=== PATIENT | female | born 2000 | race Caucasian/White ===

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

== ENCOUNTER 2020-07-01 05:17 | Inpatient (IN) | payer BC, MEDICAID ==
--- NOTE | 2020-06-25 12:10 | PCM.LDHP ---
L&D History of Present Illness - General Date of Service: 07/01/20 Admit Problem/Dx: Admission Diagnosis/Problem Admission Diagnosis/Problem 06/25/20 11:58 Ifeoma is a 20-year-old 2 para 0-0-1-0 white female who is scheduled to be admitted on 07/01/2020 at 39 weeks gestational age for primary section due to large for gestational age baby/macrosomia. Source of Information: Patient History Limitations: Reports: No Limitations - History of Present Illness Introduction:: Ifeoma is a 20-year-old 2 para 0-0-1-0 white female who is scheduled to be admitted on 07/01/2020 at 39 weeks gestational age for primary section due to large for gestational age baby/macrosomia. Procedure, its risks, benefits, follow-up and alternatives of care including allowing for natural labor and attempt at vaginal delivery all discussed in detail. She is wishing to proceed and has signed a consent. 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 JO ANN 07/06/2020 is determined by a certain last menstrual period starting 09/30/2019 and supported by multiple ultrasounds during the course of the . Patient had 1 previous which ended in an elective termination in first trimester. She denies any STIs. She has not had a Pap smear due to her age of 20. LMP was certain at 09/30/2019. Patient normal menarche and cycles were reasonably regular. course: Patient was initially seen for this at 11 weeks gestational age. She was seen on a very frequent basis throughout the . Her weight gain was from 203.2 pounds to 252 pounds for a 49 pound increase. Her blood pressure remained normal throughout the . Her fundal height has been ahead of schedule for the last trimester. At this time she is approximately 4 cm ahead of schedule fundal height pierre. Last ultrasound performed on 06/24/2020 showed the baby at the 96 percentile with an estimated weight of 4052 g (5 pounds 15 ounces). Patient has been noted to have a borderline pelvis in the past. Presented to the patient was the potential risks of delivery of a 4052 g baby with a borderline pelvis in light of the fact that she is a gestational diabetic with less than optimal control. She appears to understand and would like to proceed with a primary section. The patient was group B strep positive on evaluation 06/08/2020. She declined flu vaccination. She was given diagnosis of gestational diabetes. She plans to breast-feed. She had a prequel noninvasive screen which was negative. Patient is rubella immune. HPV vaccination given May 2019. Hepatitis A immunizations 2017. Hepatitis B immunizations 2000. Pneumococcal immunizations 2000. Meningococcal immunization 2017. Laboratory testing in shows her blood to be all positive with first hemoglobin of 14.3 g/dL. Platelets were 296,000 at that time. She is rubella immune. RPR is nonreactive. Urine culture was negative. Hepatitis B surface antigen and HIV assays were both negative. Gonorrhea and Chlamydia were both negative. TSH on 04/06/2020 was normal at 1.264. Second trimester hemoglobin was 13.7 g/dL and platelets were 283,000. 1 hour GTT was 162. Patient was started on dietary therapy and has been on this in since that abnormal glucose testing. She has maintained reasonable but not optimal blood sugar therapy. She has been moderately noncompliant with her blood sugar evaluations and her diet. Group B strep screen was negative. Allergies: Seasonal allergies only. No known drug allergies. Medications: 1. Tylenol 3 occasionally for pain. 2. Doxylamine succinate and pyridoxine for nausea early in the . 3. vitamins daily 4. Calcium chews dose unknown taken daily. Past medical history: 1. Elective termination of 2. Obesity Past surgical history: 1. Right foot surgery. Family history: Mother is alive and well. Father's history is unknown. Brother is alive and well. Maternal grandmother is alive and well but has hypertension. Maternal grandfather is alive and well. Paternal grandparents histories are unknown. Maternal great uncle with stomach cancer history. No known family history of bleeding or clotting disorders, anesthesia related issues or related problems. Social history: Patient is single. Her significant other is Nat Burrell. She does not use any significant also alcohol, drugs or tobacco. She is not employed at the present time. She lives in [place], [place]. Review of systems: In general patient has no complaints other than late discomforts.. Skin: Negative Lungs: No infectious symptoms or shortness of breath Cardiovascular: No chest pain or exercise intolerance Breasts: No lumps, changes in size, pain, dimpling, discharge or axillary or supraclavicular concerns. GI: Negative : related changes. Musculoskeletal: Negative Neurological: Negative Physical exam: In general the patient is well-developed, well-nourished, pleasant female of stated age in no acute distress. Skin is warm dry without lesions. HEENT, neck and back within normal limits. Lungs are clear with good breath sounds in all lung landrum. Cardiovascular exam shows regular and rhythm without murmurs. Breast exam is deferred having been done at first annual visit and found to be normal is not repeated at this time. Patient does plan to breast-feed. Abdomen is gravid with fundal height of 42 cm. Baby is felt to be in a vertex presentation.. Genital per digital exam last done on 06/22/2020 showed cervix to be 2 cm, 80% effaced, soft, -3, mid position. Baby in vertex presentation.. Extremities and neurological exam are grossly within normal limits. - Related Data Allergies/Adverse Reactions: Allergies Allergy/AdvReac Type Severity Reaction Status Date / Time No Known Allergies Allergy Verified 06/08/20 20:58 Home Medications: Home Meds Vits #93/Iron Fum/FA [ Formula Tablet] 1 each PO DAILY 05/19/20 [History] Acetaminophen with Codeine [Acetaminophen-Cod #3] 1 - 2 tab PO ASDIRECTED PRN 06/08/20 [History] Doxylamine Succinate/Vit B6 [Doxylamine-Pyridoxine 10-10 mg] 1 each PO DAILY 06/08/20 [History] Past Medical History - Past Health History Medical/Surgical History: Denies Medical/Surgical History Endocrine/Metabolic History: Reports: Obesity/BMI 30+ - Past Surgical History HEENT Surgical History: Reports: Oral Surgery (dental work) Musculoskeletal Surgical History: Reports: Other (See Below) (Right bunionectomy 07/18/2019) Social & Family History - Family History Family Medical History: No Pertinent Family History - Caffeine Use Caffeine Use: Reports: None - Living Situation & Occupation Living situation: Reports: Single, with Significant Other (Boyfriend) Occupation: Employed (Retail) H&P Review of Systems - Review of Systems: Review Of Systems: See Below L&D Exam - Exam Exam: See Below Problem List Initiated/Reviewed/Updated: Yes Assessment/Plan Comment:: 1Elena is a 20-year-old 2 para 0-0-1-0 white female who is scheduled to be admitted on 07/01/2020 at 39 weeks gestational age for primary section due to large for gestational age baby/macrosomia. She is gestational diabetic and has a borderline pelvis. The procedure, risk, benefits, alternatives of care and follow-up were discussed in detail with patient. She appears understand and wishes to proceed. 2. Risk factors for surgery include history of gestational diabetes and obesity. 3. Group B strep screen is negative 4. She is gestational diabetic with less than optimal control with diet. 5. Patient is rubella immune. Declined flu vaccination. 6. Patient plans to breast-feed. 7. Blood is all positive. Plan: 1. Primary low uterine segment transverse section through Pfannenstiel skin incision under spinal block. The procedure, risk, benefits, alternatives of care and follow-up were discussed in detail. She appears understand and wishes to proceed 2. DVT prophylaxis with SCDs 3. Infection prophylaxis with 2-3 g of Ancef preoperatively 4. Preoperative labs to consist of CBC, type and screen, Covid19 testing
[2020-07-01] MEDS ORDERED: Sodium Chloride 0.9% 10 ML Syringe FLUSH PRN (05:30)
[2020-07-01] MEDS: Lactated Ringers 1,000 ML IV SCH ×2 (05:43→06:37)
[2020-07-01] MEDS ORDERED: Diphtheria,Pertussis(Acell),Tetanus Vaccine 0.5 ML Syringe IM ONE (05:57)
[2020-07-01] MEDS ORDERED: Morphine PF 10 MG/10 ML SDV ONE (06:56)
[2020-07-01] MEDS ORDERED: ceFAZolin 1 GM Vial ONE (06:56)
[2020-07-01] MEDS ORDERED: Oxytocin 10 Units/1 ML SDV ONE (06:56)
[2020-07-01] MEDS ORDERED: fentaNYL 100 MCG/2 ML SDV ONE (06:56)
[2020-07-01] MEDS ORDERED: Metoclopramide 10 MG/2 ML SDV IVPUSH ONE (07:00)
[2020-07-01] MEDS ORDERED: Citric Acid/Sodium Citrate Solution 30 ML Cup PO ONE (07:00)
[2020-07-01] MEDS ORDERED: Bupivacaine 0.5% 30 ML SDV ONE (07:15)
--- NOTE | 2020-07-01 07:22 | PCM.PREANE ---
Preanesthetic Assessment - Procedure Proposed Procedure: Primary Section - Anesthesia/Transfusion/Family Hx Anesthesia History: Prior Anesthesia Without Reaction Transfusion History: No Prior Transfusion(s) - Review of Systems General: No Symptoms Pulmonary: No Symptoms Cardiovascular: No Symptoms Gastrointestinal: No Symptoms Neurological: No Symptoms Other: Reports: None - Physical Assessment NPO Status Date: 06/30/20 NPO Status Time: 22:30 Vital Signs: Last Vital Signs Temp 97.3 F 07/01/20 05:31 Pulse 85 07/01/20 05:31 Resp 16 07/01/20 05:31 BP 133/96 H 07/01/20 05:31 Pulse Ox 98 07/01/20 05:31 Height: 1.63 m Weight: 114.85 kg ASA Class: 3 (high BMI) Mental Status: Alert & Oriented x3 Airway Class: Mallampati = 3 Dentition: Reports: Normal Dentition Thyro-Mental Finger Breadths: 3 Mouth Opening Finger Breadths: 3 ROM/Head Extension: Full Lungs: Clear to Auscultation, Normal Respiratory Effort Cardiovascular: Regular Rate, Regular Rhythm - Allergies Allergies/Adverse Reactions: Allergies Allergy/AdvReac Type Severity Reaction Status Date / Time No Known Allergies Allergy Verified 06/30/20 14:06 - Acknowledgements Anesthesia Type Planned: Spinal Pt an Appropriate Candidate for the Planned Anesthesia: Yes Alternatives and Risks of Anesthesia Discussed w Pt/Guardian: Yes Pt/Guardian Understands and Agrees with Anesthesia Plan: Yes PreAnesthesia Questionnaire - Past Health History Medical/Surgical History: Denies Medical/Surgical History W[employer] T[employer]ER History: Reports: , Therapeutic Other OB/BYN History: TAB 05/08/18. Currently ED07/06/20 Psychiatric History: Reports: Anxiety, Depression Endocrine/Metabolic History: Reports: Diabetes, Gestational, Obesity/BMI 30+ - Past Surgical History HEENT Surgical History: Reports: Oral Surgery Musculoskeletal Surgical History: Reports: Other (See Below) Other Musculoskeletal Surgeries/Procedures:: bunionectomy - SUBSTANCE USE Tobacco Use Status *Q: Never Tobacco User Tobacco Use Within Last Twelve Months: No Second Hand Smoke Exposure: No Recreational Drug Use History: No - HOME MEDS Home Medications: Home Meds Vits #93/Iron Fum/FA [ Formula Tablet] 1 each PO DAILY 05/19/20 [History] Doxylamine Succinate/Vit B6 [Doxylamine-Pyridoxine 10-10 mg] 1 each PO DAILY 06/08/20 [History] - CURRENT (IN HOUSE) MEDS Current Meds: Current Medications Cefazolin Sodium/Dextrose 2 gm (/ Premix) 50 mls @ 100 mls/hr IV ONETIME ONE Stop: 07/01/20 07:59 Oxytocin/Lactated Ringer's (Pitocin In Lr 20 Units/1,000 Ml) 20 unit in 1,000 mls @ 500 mls/hr IV TITRATE LISA; Protocol Lactated Ringer's (Ringers, Lactated) 1,000 mls @ 125 mls/hr IV ASDIRECTED LISA Last Admin: 07/01/20 06:37 Dose: 125 mls/hr Documented by: Cefazolin Sodium/Dextrose 1 gm (/ Premix) 50 mls @ 100 mls/hr IV ONETIME ONE Stop: 07/01/20 07:59 Sodium Chloride (Saline Flush) 10 ml FLUSH ASDIRECTED PRN PRN Reason: Keep Vein Open Discontinued Medications Cefazolin Sodium (Ancef) Confirm Administered Dose 2 gm .ROUTE .STK-MED ONE Stop: 07/01/20 06:57 Citric Acid/Sodium Citrate (Bicitra Solution) 30 ml PO ONETIME ONE Stop: 07/01/20 07:01 Diphtheria/Tetanus/Acell Pertussis (Adacel) 0.5 ml IM .ONCE ONE Stop: 07/01/20 05:58 Fentanyl (Sublimaze) Confirm Administered Dose 100 mcg .ROUTE .STK-MED ONE Stop: 07/01/20 06:57 Metoclopramide HCl (Reglan) 10 mg IVPUSH ONETIME ONE Stop: 07/01/20 07:01 Morphine Sulfate (Duramorph Pf) Confirm Administered Dose 10 mg .ROUTE .STK-MED ONE Stop: 07/01/20 06:57 Oxytocin (Pitocin) Confirm Administered Dose 20 unit .ROUTE .STK-MED ONE Stop: 07/01/20 06:57
[2020-07-01] MEDS ORDERED: ceFAZolin 2 GM in Premix Bag 1 BAG IV ONE (07:30)
[2020-07-01] MEDS ORDERED: ceFAZolin 1 GM in Premix Bag 1 BAG IV ONE (07:30)
[2020-07-01] MEDS ORDERED: Lactated Ringers 1,000 ML ONE (07:58)
[2020-07-01] MEDS ORDERED: Oxytocin/Lactated Ringers 20 UNIT/1,000 ML BAG IV SCH (08:00)
[2020-07-01] MEDS ORDERED: ePHEDrine 50 MG/ML SDV ONE (08:01)
[2020-07-01] MEDS ORDERED: Ondansetron 4 MG/2 ML SDV IVPUSH PRN (08:25)
[2020-07-01] MEDS ORDERED: fentaNYL 100 MCG/2 ML SDV IVPUSH PRN (08:25)
[2020-07-01] MEDS ORDERED: diphenhydrAMINE 50 MG/ML SDV IVPUSH PRN ×2 (08:25→10:27)
--- NOTE | 2020-07-01 08:55 | PCM.POSTAN ---
POST ANESTHESIA ASSESSMENT - MENTAL STATUS Mental Status: Alert, Oriented - VITAL SIGNS Vital Signs: Last Vital Signs Temp 97.3 F 07/01/20 08:50 Pulse 71 07/01/20 08:50 Resp 18 07/01/20 08:50 BP 131/60 07/01/20 08:50 Pulse Ox 98 07/01/20 08:50 - RESPIRATORY Respiratory Status: Respiratory Rate WNL, Airway Patent, O2 Saturation Stable - CARDIOVASCULAR CV Status: Pulse Rate WNL, Blood Pressure Stable - GASTROINTESTINAL GI Status: No Symptoms - PAIN Pain Score: 0 (post SAB) - POST OP HYDRATION Hydration Status: Adequate & Stable
--- NOTE | 2020-07-01 09:09 | PCM.OPNOTE ---
- General Post-Op/Procedure Note Date of Surgery/Procedure: 07/01/20 Operative Procedure(s): Primary low uterine segment transverse section through Pfannenstiel skin incision Findings: Ifeoma is a 20-year-old 2 para 0-0-1-0 white female who is scheduled to be admitted on 07/01/2020 at 39 weeks gestational age for primary section due to large for gestational age baby/macrosomia. Procedure, its risks, benefits, follow-up and alternatives of care including allowing for natural labor and attempt at vaginal delivery all discussed in detail. Underwent primary section for diagnosis of macrosomia and borderline pelvis. Male delivered at 0807 hrs. on 07/01/2020. Apgars 8 and 9. Weight was 8 pounds 15 ounces. Estimated blood loss was 900 cc. Urine output is 150 cc. IV fluids were 2000 cc. Surgery duration was approximately 30 minutes. Pre Op Diagnosis: 1. 39-week intrauterine . 2. macrosomia (large for gestational age) Post-Op Diagnosis: Same Anesthesia Technique: Spinal Other Anesthesia Type: Marcaine 0.5% - 20 cc totallocal Primary Surgeon: Cale Jacskon Secondary Surgeon: Kt Whelan Anesthesia Provider: Ari Lorenzo Reason Speech Teacher Was Necessary: Retraction, assistance, patient safety, quality of care. Fluid Replacement, Intraop: 2,000 Output, Urine Amount: 150 EBL in mLs: 900 Drain/Tube Comments:: Indwelling bladder catheter Complications: None Condition: Good Free Text/Narrative:: Surgery duration: 34 minutes Surgery duration: Procedure: The patient is appropriately consented. Patient was transferred to the room and placed in a sitting position. Spinal anesthesia was administered. After confirmation of adequate anesthesia patient was placed in a supine position with a wedge under her right side to facilitate left lateral positioning. The patient was prepped and draped in usual fashion after Yu catheter was already placed . The anesthetic was checked and found to be adequate. 20 mL of Marcaine 0.5% was injected locally in the Pfannenstiel incision site. The Pfannenstiel skin incision was then made and carried down through skin, subcutaneous and fascial layers. The fascia was then undermined superiorly and inferiorly to allow for adequate operating room. The recti muscles midline and preperitoneal fat was bluntly dissected. Peritoneal cavity was entered longitudinally. The vesicouterine peritoneum was then incised transversely and bladder flap was developed. Myometrium was incised transversely to the level of the amniotic sac. This incision was extended bilaterally in a blunt fashion. The amniotic sac was then ruptured resulting in clear amniotic fluid. A hand is placed in the low uterine segment and the baby's head was brought forth through the incision. The baby was completely delivered using fundal pressure in a routine fashion. The nose and mouth were bulb suctio familia. Baby's cord was clamped x2 cut and baby was handed off to attending spray machine operator Dr Donnelly. Placenta was expressed after cord blood was obtained. Uterus was then exteriorized to allow for easier closure. The cervix was assessed and found to be dilated adequately to allow egress of blood. The uterus was closed in 2 layers. The first layer a running locked suture of 0 Monocryl, the second layer a running locked vertical mattress suture of 0 Monocryl. 2 [id number] suture was placed at mid incision to control 2 bleeders. Hemostasis confirmed at this time. Sponge instrument needle counts are correct. The uterus was returned to the abdominal cavity and lateral gutters were cleared of blood. Once again sponge needle counts are correct. The anterior abdominal wall was closed with a #1 PDS suture from angle to angle. The subcutaneous area was found to be free of any bleeders. interrupted sutures of 3-0 Monocryl were used to reapproximate the subcutaneous layer.Skin was closed with a running subcuticular stitch of 3-0 Monocryl in a vertical mattress suture fashion using a Sergio needle. Prineo mesh/glue was then applied to further approximate the incision. It should be noted that patient received 2 g of Ancef preoperatively for infection prophylaxis and had Pitocin infused after delivery of the placenta to facilitate uterine contraction. She also had sequential compression stockings in place for DVT prophylaxis. Patient was discharged from the operating room in satisfactory condition.
[2020-07-01] MEDS ORDERED: Ondansetron 4 MG/2 ML SDV IV PRN (10:27)
[2020-07-01] MEDS ORDERED: ePHEDrine 50 MG/ML SDV IVPUSH PRN (10:27)
[2020-07-01] MEDS ORDERED: Naloxone 0.4 MG/ML SDV IVPUSH PRN (10:27)
[2020-07-01] MEDS ORDERED: Dextrose 5%-Lactated Ringers 1,000 ML IV SCH (10:27)
[2020-07-01] MEDS: Docusate Sodium 100 MG Cap PO SCH ×2 (11:15→22:53)
[2020-07-01] MEDS: Ibuprofen 800 MG Tab PO SCH ×2 (11:15→18:17)
[2020-07-01] MEDS: Simethicone 80 MG Tab.Chew PO SCH ×4 (11:16→22:53)
[2020-07-01] MEDS: Prenatal Multivitamin with Calcium/Folic Acid/Iron Tab PO SCH (11:18)
[2020-07-01] MEDS: Acetaminophen/oxyCODONE 325-5 MG Tab PO PRN (16:09)
[2020-07-02] MEDS: Ibuprofen 800 MG Tab PO SCH ×3 (02:15→19:20)
[2020-07-02] MEDS: Acetaminophen/oxyCODONE 325-5 MG Tab PO PRN ×4 (06:27→21:00)
--- NOTE | 2020-07-02 06:40 | PCM.PNPP ---
- General Info Date of Service: 07/02/20 Functional Status: Reports: Pain Controlled - Review of Systems General: Reports: No Symptoms HEENT: Reports: No Symptoms Pulmonary: Reports: No Symptoms Cardiovascular: Reports: No Symptoms Gastrointestinal: Reports: No Symptoms Genitourinary: Reports: No Symptoms Musculoskeletal: Reports: No Symptoms Skin: Reports: No Symptoms Neurological: Reports: No Symptoms Psychiatric: Reports: No Symptoms - General Info Date of Service: 07/02/20 - Patient Data Vital Signs - Most Recent: Last Vital Signs Temp 36.6 C 07/02/20 04:12 Pulse 77 07/02/20 04:12 Resp 16 07/02/20 06:00 BP 118/81 07/02/20 04:12 Pulse Ox 99 07/02/20 06:00 Weight - Most Recent: 114.85 kg I&O - Last 24 Hours: Intake & Output 07/01/20 07/01/20 07/02/20 14:59 22:59 06:59 Intake Total 2305 500 Output Total 1000 1150 2100 Balance 1305 -650 -2100 Lab Results - Last 24 Hours: Laboratory Results - last 24 hr 07/01/20 07/01/20 07/01/20 Range/Units 07:30 07:30 07:30 WBC 11.46 H (3.98-10.04) K/mm3 RBC 4.56 (3.98-5.22) M/mm3 Hgb 13.4 (11.2-15.7) gm/dl Hct 40.3 (34.1-44.9) % MCV 88.4 (79.4-94.8) fl MCH 29.4 (25.6-32.2) pg MCHC 33.3 (32.2-35.5) g/dl RDW Std Deviation 43.6 (36.4-46.3) fL Plt Count 184 (182-369) K/mm3 MPV 11.6 (9.4-12.3) fl Neut % (Auto) 73.6 H (34.0-71.1) % Lymph % (Auto) 17.0 L (19.3-51.7) % Casey % (Auto) 8.7 (4.7-12.5) % Eos % (Auto) 0.3 L (0.7-5.8) Baso % (Auto) 0.1 (0.1-1.2) % Neut # (Auto) 8.42 H (1.56-6.13) K/mm3 Lymph # (Auto) 1.95 (1.18-3.74) K/mm3 Casey # (Auto) 1.00 H (0.24-0.36) K/mm3 Eos # (Auto) 0.04 (0.04-0.36) K/mm3 Baso # (Auto) 0.01 (0.01-0.08) K/mm3 RPR Non-reactive (NONREACTIVE) Blood Type O POSITIVE Gel Antibody Screen Negative 07/02/20 Range/Units 04:53 WBC 10.63 H (3.98-10.04) K/mm3 RBC 3.52 L (3.98-5.22) M/mm3 Hgb 10.4 L D (11.2-15.7) gm/dl Hct 31.9 L (34.1-44.9) % MCV 90.6 (79.4-94.8) fl MCH 29.5 (25.6-32.2) pg MCHC 32.6 (32.2-35.5) g/dl RDW Std Deviation 43.9 (36.4-46.3) fL Plt Count 157 L (182-369) K/mm3 MPV 11.7 (9.4-12.3) fl Neut % (Auto) 74.3 H (34.0-71.1) % Lymph % (Auto) 14.0 L (19.3-51.7) % Casey % (Auto) 10.7 (4.7-12.5) % Eos % (Auto) 0.6 L (0.7-5.8) Baso % (Auto) 0.1 (0.1-1.2) % Neut # (Auto) 7.90 H (1.56-6.13) K/mm3 Lymph # (Auto) 1.49 (1.18-3.74) K/mm3 Casey # (Auto) 1.14 H (0.24-0.36) K/mm3 Eos # (Auto) 0.06 (0.04-0.36) K/mm3 Baso # (Auto) 0.01 (0.01-0.08) K/mm3 RPR (NONREACTIVE) Blood Type Gel Antibody Screen Med Orders - Current: Current Medications Diphenhydramine HCl (Benadryl) 25 mg IVPUSH Q6H PRN PRN Reason: Itching or Nausea Docusate Sodium (Colace) 100 mg PO Q12H [facility] Last Admin: 07/01/20 22:53 Dose: 100 mg Documented by: Ephedrine Sulfate (Ephedrine Sulfate) 5 mg IVPUSH SEECOMMENT PRN PRN Reason: Other Ibuprofen (Motrin) 800 mg PO Q8H [facility] Last Admin: 07/02/20 02:15 Dose: 800 mg Documented by: Naloxone HCl (Narcan) 0.1 mg IVPUSH SEECOMMENT PRN PRN Reason: Respiratory Depression Ondansetron HCl (Zofran) 4 mg IV Q4H PRN PRN Reason: Nausea/Vomiting Last Admin: 07/01/20 13:49 Dose: 4 mg Documented by: Oxycodone/Acetaminophen (Percocet 325-5 Mg) 1 tab PO Q4H PRN PRN Reason: Pain (moderate 4-6) Last Admin: 07/02/20 06:27 Dose: 1 tab Documented by: Oxycodone/Acetaminophen (Percocet 325-5 Mg) 2 tab PO Q4H PRN PRN Reason: Pain (severe 7-10) Prenat Multivit/Lajas/Iron/Folic Ac ( Plus Iron) 1 each PO DAILY [facility] Last Admin: 07/01/20 11:18 Dose: Not Given Documented by: Simethicone (Simethicone) 160 mg PO QID [facility] Last Admin: 07/01/20 22:53 Dose: 160 mg Documented by: Discontinued Medications Bupivacaine HCl (Marcaine 0.5%) Confirm Administered Dose 30 ml .ROUTE .STK-MED ONE Stop: 07/01/20 07:16 Last Admin: 07/01/20 08:01 Dose: 20 ml Documented by: Cefazolin Sodium (Ancef) Confirm Administered Dose 2 gm .ROUTE .STK-MED ONE Stop: 07/01/20 06:57 Citric Acid/Sodium Citrate (Bicitra Solution) 30 ml PO ONETIME ONE Stop: 07/01/20 07:01 Last Admin: 07/01/20 07:25 Dose: 30 ml Documented by: Diphenhydramine HCl (Benadryl) 25 mg IVPUSH Q6H PRN PRN Reason: Pruritis Diphtheria/Tetanus/Acell Pertussis (Adacel) 0.5 ml IM .ONCE ONE Stop: 07/01/20 05:58 Ephedrine Sulfate (Ephedrine Sulfate) Confirm Administered Dose 50 mg .ROUTE .STK-MED ONE Stop: 07/01/20 08:02 Fentanyl (Sublimaze) Confirm Administered Dose 100 mcg .ROUTE .STK-MED ONE Stop: 07/01/20 06:57 Fentanyl (Sublimaze) 50 mcg IVPUSH Q5M PRN PRN Reason: Pain Cefazolin Sodium/Dextrose 2 gm (/ Premix) 50 mls @ 100 mls/hr IV ONETIME ONE Stop: 07/01/20 07:59 Oxytocin/Lactated Ringer's (Pitocin In Lr 20 Units/1,000 Ml) 20 unit in 1,000 mls @ 500 mls/hr IV TITRATE LISA; Protocol Lactated Ringer's (Ringers, Lactated) 1,000 mls @ 125 mls/hr IV ASDIRECTED LISA Last Admin: 07/01/20 06:37 Dose: 125 mls/hr Documented by: Cefazolin Sodium/Dextrose 1 gm (/ Premix) 50 mls @ 100 mls/hr IV ONETIME ONE Stop: 07/01/20 07:59 Lactated Ringer's (Ringers, Lactated) Confirm Administered Dose 1,000 mls @ as directed .ROUTE .STK-MED ONE Stop: 07/01/20 07:59 Dextrose/Lactated Ringer's (Dextrose 5%-Lactated Ringers) 1,000 mls @ 125 mls/hr IV ASDIRECTED LISA Stop: 07/01/20 18:26 Last Admin: 07/01/20 13:51 Dose: 125 mls/hr Documented by: Metoclopramide HCl (Reglan) 10 mg IVPUSH ONETIME ONE Stop: 07/01/20 07:01 Last Admin: 07/01/20 07:29 Dose: 10 mg Documented by: Morphine Sulfate (Duramorph Pf) Confirm Administered Dose 10 mg .ROUTE .STK-MED ONE Stop: 07/01/20 06:57 Ondansetron HCl (Zofran) 4 mg IVPUSH ONETIME PRN PRN Reason: Nausea/Vomiting Oxytocin (Pitocin) Confirm Administered Dose 20 unit .ROUTE .[facility] ONE Stop: 07/01/20 06:57 Sodium Chloride (Saline Flush) 10 ml FLUSH ASDIRECTED PRN PRN Reason: Keep Vein Open - Infant Interaction Infant Disposition, : at Bedside Support Person: Significant Other - Recovery Exam Fundal Tone: Firm Fundal Level: 1 Fingerbreadths Below Umbilicus Fundal Placement: Midline Lochia Amount: Scant Lochia Color: Rubra/Red Perineum Description: Intact, Minimal Bruising/Swelling Episiotomy/Laceration: None Bladder Status: Indwelling Catheter in Place Urinary Elimination: Indwelling Catheter - Exam General: Alert, Oriented HEENT: Pupils Equal Neck: Supple Lungs: Clear to Auscultation, Normal Respiratory Effort Cardiovascular: Regular Rate, Regular Rhythm GI/Abdominal Exam: Normal Bowel Sounds, Soft, Non-Tender, No Organomegaly, No Distention, No Abnormal Bruit, No Mass, Pelvis Stable Extremities: Normal Inspection, Normal Range of Motion, Non-Tender, No Pedal Edema, Normal Capillary Refill Skin: Warm, Dry, Intact Wound/Incisions: Healing Well Neurological: No New Focal Deficit Psy/Mental Status: Alert, Normal Affect, Normal Mood - Problem List & Annotations (1) delivery delivered SNOMED Code(s): 691267905 Code(s): O82 - ENCOUNTER FOR DELIVERY WITHOUT INDICATION Status: Acute Current Visit: Yes (2) Gestational diabetes mellitus SNOMED Code(s): 12895849 Code(s): O24.419 - GESTATIONAL DIABETES MELLITUS IN , UNSP CONTROL Status: Acute Current Visit: Yes - Problem List Review Problem List Initiated/Reviewed/Updated: Yes - Assessment Assessment:: POD1 from section for suspected macrosomia. Doing well. Pain controlled. No complaints. Probable discharge tomorrow.
[2020-07-02] MEDS: Simethicone 80 MG Tab.Chew PO SCH ×4 (08:38→21:02)
[2020-07-02] MEDS: Docusate Sodium 100 MG Cap PO SCH ×3 (08:39→21:03)
--- NOTE | 2020-07-02 08:45 | PCM48HPAN ---
Post Anesthesia Note - EVALUATION WITHIN 48HRS OF ANESTHETIC Vital Signs in Normal Range: Yes Patient Participated in Evaluation: Yes Respiratory Function Stable: Yes Airway Patent: Yes Cardiovascular Function Stable: Yes Hydration Status Stable: Yes Pain Control Satisfactory: Yes Nausea and Vomiting Control Satisfactory: Yes Mental Status Recovered: Yes Vital Signs: Last Vital Signs Temp 36.6 C 07/02/20 04:12 Pulse 77 07/02/20 04:12 Resp 17 07/02/20 06:43 BP 118/81 07/02/20 04:12 Pulse Ox 98 07/02/20 06:43 - COMMENTS/OBSERVATIONS Free Text/Narrative:: no anesthesia complications noted
[2020-07-02] MEDS: Prenatal Multivitamin with Calcium/Folic Acid/Iron Tab PO SCH (12:16)
[2020-07-03] MEDS: Acetaminophen/oxyCODONE 325-5 MG Tab PO PRN ×3 (00:39→08:55)
[2020-07-03] MEDS: Docusate Sodium 100 MG Cap PO SCH ×3 (02:35→11:33)
[2020-07-03] MEDS: Ibuprofen 800 MG Tab PO SCH ×2 (02:53→11:33)
[2020-07-03] MEDS: Simethicone 80 MG Tab.Chew PO SCH (08:55)
[2020-07-03] MEDS: Prenatal Multivitamin with Calcium/Folic Acid/Iron Tab PO SCH (08:55)
--- NOTE | 2020-07-03 10:47 | PCM.SN.2 ---
- Free Text/Narrative Note: Post Operative Progress Note POD #2 Subjective: Doing well overall. Ambulating without difficulty but is somewhat sore when she does get up to walk around. Lochia minimal. Voiding without difficulty. Passing flatus. Tolerating regular diet without nausea or vomiting. Pain controlled with oral medications. Breast-feeding and pumping breastmilk with minimal difficulty. Objective: Vitals: Vital Signs - 24 hr 07/02/20 07/02/20 07/03/20 16:07 20:40 02:56 Temperature 36.4 C 37.1 C 36.9 C Pulse, 91 95 89 Peripheral Respiratory 14 14 16 Rate Blood Pressure 114/65 125/71 132/76 O2 Sat by Pulse 97 95 97 Oximetry Physical Exam General: Alert and oriented, no acute distress Lungs: Clear to auscultation bilaterally Heart: Regular rate and rhythm Abdomen: Soft, minimal appropriate tenderness, non-distended, fundus midline, nontender and at the umbilicus Incision: Clean, dry and intact, no erythema, bleeding or drainage with Telfa pad covering the perennial dressing. No bleeding noted on the Telfa pad Extremities: 1+ edema in bilateral lower extremities to mid shins, no calf tenderness bilaterally ASSESSMENT: 20-year-old female -0-0-1 s/p primary section POD #2 for macrosomic , complicated by gestational diabetes PLAN: Doing well Breast-feeding and pumping breastmilk with minimal difficulty. Assist as needed Incision healing well. Continue to keep clean and dry. Lochia minimal. Continue to monitor for appropriate lochia. Continue routine post-operative care Anticipate discharge home today Kt Whelan MD 10:46 AM 07/03/2020
--- NOTE | 2020-07-03 10:55 | PCM.DCSUM1 ---
Discharge Summary - Hospital Course Free Text/Narrative:: - General Post-Op/Procedure Note Date of Surgery/Procedure: 07/01/20 Operative Procedure(s): Primary low uterine segment transverse section through Pfannenstiel skin incision Findings: Ifeoma is a 20-year-old 2 para 0-0-1-0 white female who is scheduled to be admitted on 07/01/2020 at 39 weeks gestational age for primary section due to large for gestational age baby/macrosomia. Procedure, its risks, benefits, follow-up and alternatives of care including allowing for natural labor and attempt at vaginal delivery all discussed in detail. Underwent primary section for diagnosis of macrosomia and borderline pelvis. Male infant delivered at 0807 hrs. on 07/01/2020. Apgars 8 and 9. Weight was 8 pounds 15 ounces. Estimated blood loss was 900 cc. Urine output is 150 cc. IV fluids were 2000 cc. Surgery duration was approximately 30 minutes. Pre Op Diagnosis: 1. 39-week intrauterine . 2. macrosomia (large for gestational age) Post-Op Diagnosis: Same Anesthesia Technique: Spinal Other Anesthesia Type: Marcaine 0.5% - 20 cc totallocal Primary Surgeon: Cale Jackson Secondary Surgeon: Kt Whelan Anesthesia Provider: Ari Lorenzo Reason Head Housekeeper Was Necessary: Retraction, assistance, patient safety, quality of care. Fluid Replacement, Intraop: 2,000 Output, Urine Amount: 150 EBL in mLs: 900 Drain/Tube Comments:: Indwelling bladder catheter Complications: None Condition: Good Free Text/Narrative:: Surgery duration: 34 minutes Surgery duration: Procedure: The patient is appropriately consented. Patient was transferred to the room and placed in a sitting position. Spinal anesthesia was administered. After confirmation of adequate anesthesia patient was placed in a supine position with a wedge under her right side to facilitate left lateral positioning. The patient was prepped and draped in usual fashion after Yu catheter was already placed . The anesthetic was checked and found to be adequate. 20 mL of Marcaine 0.5% was injected locally in the Pfannenstiel incision site. The Pfannenstiel skin incision was then made and carried down through skin, subcutaneous and fascial layers. The fascia was then undermined superiorly and inferiorly to allow for adequate operating room. The recti muscles midline and preperitoneal fat was bluntly dissected. Peritoneal cavity was entered longitudinally. The vesicouterine peritoneum was then incised transversely and bladder flap was developed. Myometrium was incised transversely to the level of the amniotic sac. This incision was extended bilaterally in a blunt fashion. The amniotic sac was then ruptured resulting in clear amniotic fluid. A hand is placed in the low uterine segment and the baby's head was brought forth through the incision. The baby was completely delivered using fundal pressure in a routine fashion. The nose and mouth were bulb suctioned. Baby's cord was clamped x2 cut and baby was handed off to attending distribution operation supervisor Dr Donnelly. Placenta was expressed after cord blood was obtained. Uterus was then exteriorized to allow for easier closure. The cervix was assessed and found to be dilated adequately to allow egress of blood. The uterus was closed in 2 layers. The first layer a running locked suture of 0 Monocryl, the second layer a running locked vertical mattress suture of 0 Monocryl. 2 [id number] suture was placed at mid incision to control 2 bleeders. Hemostasis confirmed at this time. Sponge instrument needle counts are correct. The uterus was returned to the abdominal cavity and lateral gutters were cleared of blood. Once again sponge needle counts are correct. The anterior abdominal wall was closed with a #1 PDS suture from angle to angle. The subcutaneous area was found to be free of any bleeders. interrupted sutures of 3-0 Monocryl were used to reapproximate the subcutaneous layer.Skin was closed with a running subcuticular stitch of 3-0 Monocryl in a vertical mattress suture fashion using a Sergio needle. Prineo mesh/glue was then applied to further approximate the incision. It should be noted that patient received 2 g of Ancef preoperatively for infection prophylaxis and had Pitocin infused after delivery of the placenta to facilitate uterine contraction. She also had sequential compression stockings in place for DVT prophylaxis. Patient was discharged from the operating room in satisfactory condition. Diagnosis: Stroke: No - Discharge Data Discharge Date: 07/03/20 Discharge Disposition: Home, Self-Care 01 Condition: Good - Referral to Home Health Primary Care Physician: Cale Jackson MD - Discharge Diagnosis/Problem(s) (1) 39 weeks gestation of SNOMED Code(s): 49604454 ICD Code: Z3A.39 - 39 WEEKS GESTATION OF Status: Acute Current Visit: Yes (2) macrosomia affecting management of mother, antepartum SNOMED Code(s): 85569306 ICD Code: O36.60X0 - MATERNAL CARE FOR EXCESS GROWTH, UNSP TRIMESTER, UNSP Status: Acute Current Visit: Yes (3) delivery delivered SNOMED Code(s): 949910153 ICD Code: O82 - ENCOUNTER FOR DELIVERY WITHOUT INDICATION Status: Acute Current Visit: Yes (4) Gestational diabetes mellitus SNOMED Code(s): 43302771 ICD Code: O24.419 - GESTATIONAL DIABETES MELLITUS IN , UNSP CONTROL Status: Acute Current Visit: Yes - Patient Summary/Data Operative Procedure(s) Performed: Primary low uterine segment transverse section through Pfannenstiel skin incision Complications: None Consults: None Hospital Course: Ifeoma Leo was admitted for primary section. She was taken back to the OR and given spinal injection for anesthesia. She was given Ancef 2 g IV for antibiotic prophylaxis. She was prepped and draped in the normal fashion. On 07/01/2020 she had a normal delivery of a live male at 08:07. Apgars of 8 and 9. Weight of 8 pounds 15 ounces. She was closed in a normal fashion. There were no complications with the procedure. Please see the operative report for full details. Her post operative course was uneventful. Her pain was well controlled and she had minimal lochia. She was ambulating, tolerating a regular diet and voiding normally. She was passing flatus and has not had a bowel movement. She was breast feeding and pumping breastmilk for feeding and this is going well. She was afebrile and her hematocrit was 31.9 on POD #1. She desired to be discharged home on the morning of POD #2. Her blood type is O+. - Patient Instructions Diet: Regular Diet as Tolerated Activity: Apply Ice, As Tolerated Activity, Other: Thing in the vagina for 6 weeks Driving: Do Not Drive (While taking narcotic medications are having significant pain) Showering/Bathing: May Shower Wound/Incision Care: Keep Operative Site/Wound Site Clean and Dry Notify Provider of: Fever, Increased Pain, Swelling and Redness, Drainage, Nausea and/or Vomiting Other/Special Instructions: Please contact your physician's office if you note any bleeding or pus coming from the abdominal incision. Please contact your physician's office if you have heavy vaginal bleeding enough to soak a pad in less than an hour for several hours. Monitor for any signs of an infection in the breasts with severe pain or redness of the breast. - Discharge Plan *PRESCRIPTION DRUG MONITORING PROGRAM REVIEWED*: Yes *COPY OF PRESCRIPTION DRUG MONITORING REPORT IN PATIENT STAR: No Prescriptions/Med Rec: Acetaminophen/oxyCODONE [Percocet 325-5 MG] 1 - 2 tab PO Q4H PRN #30 tablet PRN Reason: Pain (Moderate 4-6) Home Medications: Home Meds Vits #93/Iron Fum/FA [ Formula Tablet] 1 each PO DAILY 05/19/20 [History] Doxylamine Succinate/Vit B6 [Doxylamine-Pyridoxine 10-10 mg] 1 each PO DAILY 06/08/20 [History] Acetaminophen/oxyCODONE [Percocet 325-5 MG] 1 - 2 tab PO Q4H PRN #30 tablet 07/03/20 [Rx] Docusate Sodium [Colace] 100 mg PO BID #30 cap 07/03/20 [Rx] Ibuprofen [Motrin] 800 mg PO Q8H PRN tablet 07/03/20 [Rx] Simethicone 160 mg PO QID tab.chew 07/03/20 [Rx] Patient Handouts: Delivery, Care After Referrals: Cale Jackson MD [Primary Care Provider] - (Follow-up in 2 weeks for routine postoperative visit or earlier as needed.) - Discharge Summary/Plan Comment DC Time >30 min.: No - Patient Data Vitals - Most Recent: Last Vital Signs Temp 37.0 C 07/03/20 08:53 Pulse 93 07/03/20 08:53 Resp 16 07/03/20 08:53 BP 121/63 07/03/20 08:53 Pulse Ox 98 07/03/20 08:53 Weight - Most Recent: 114.85 kg I&O - Last 24 hours: Intake & Output 07/02/20 07/03/20 07/03/20 22:59 06:59 14:59 Intake Total 120 Balance 120 Med Orders - Current: Current Medications Diphenhydramine HCl (Benadryl) 25 mg IVPUSH Q6H PRN PRN Reason: Itching or Nausea Docusate Sodium (Colace) 100 mg PO Q12H [facility] Last Admin: 07/03/20 08:55 Dose: 100 mg Documented by: Ephedrine Sulfate (Ephedrine Sulfate) 5 mg IVPUSH SEECOMMENT PRN PRN Reason: Other Ibuprofen (Motrin) 800 mg PO Q8H [facility] Last Admin: 07/03/20 02:53 Dose: 800 mg Documented by: Naloxone HCl (Narcan) 0.1 mg IVPUSH SEECOMMENT PRN PRN Reason: Respiratory Depression Ondansetron HCl (Zofran) 4 mg IV Q4H PRN PRN Reason: Nausea/Vomiting Last Admin: 07/01/20 13:49 Dose: 4 mg Documented by: Oxycodone/Acetaminophen (Percocet 325-5 Mg) 1 tab PO Q4H PRN PRN Reason: Pain (moderate 4-6) Last Admin: 07/03/20 05:14 Dose: 1 tab Documented by: Oxycodone/Acetaminophen (Percocet 325-5 Mg) 2 tab PO Q4H PRN PRN Reason: Pain (severe 7-10) Last Admin: 07/03/20 08:55 Dose: 2 tab Documented by: Prenat Multivit/Pandora/Iron/Folic Ac ( Plus Iron) 1 each PO DAILY [facility] Last Admin: 07/03/20 08:55 Dose: 1 each Documented by: Simethicone (Simethicone) 160 mg PO QID [facility] Last Admin: 07/03/20 08:55 Dose: 160 mg Documented by: Discontinued Medications Bupivacaine HCl (Marcaine 0.5%) Confirm Administered Dose 30 ml .ROUTE .STK-MED ONE Stop: 07/01/20 07:16 Last Admin: 07/01/20 08:01 Dose: 20 ml Documented by: Cefazolin Sodium (Ancef) Confirm Administered Dose 2 gm .ROUTE .STK-MED ONE Stop: 07/01/20 06:57 Citric Acid/Sodium Citrate (Bicitra Solution) 30 ml PO ONETIME ONE Stop: 07/01/20 07:01 Last Admin: 07/01/20 07:25 Dose: 30 ml Documented by: Diphenhydramine HCl (Benadryl) 25 mg IVPUSH Q6H PRN PRN Reason: Pruritis Diphtheria/Tetanus/Acell Pertussis (Adacel) 0.5 ml IM .ONCE ONE Stop: 07/01/20 05:58 Ephedrine Sulfate (Ephedrine Sulfate) Confirm Administered Dose 50 mg .ROUTE .STK-MED ONE Stop: 07/01/20 08:02 Fentanyl (Sublimaze) Confirm Administered Dose 100 mcg .ROUTE .STK-MED ONE Stop: 07/01/20 06:57 Fentanyl (Sublimaze) 50 mcg IVPUSH Q5M PRN PRN Reason: Pain Cefazolin Sodium/Dextrose 2 gm (/ Premix) 50 mls @ 100 mls/hr IV ONETIME ONE Stop: 07/01/20 07:59 Oxytocin/Lactated Ringer's (Pitocin In Lr 20 Units/1,000 Ml) 20 unit in 1,000 mls @ 500 mls/hr IV TITRATE LISA; Protocol Lactated Ringer's (Ringers, Lactated) 1,000 mls @ 125 mls/hr IV ASDIRECTED [facility] Last Admin: 07/01/20 06:37 Dose: 125 mls/hr Documented by: Cefazolin Sodium/Dextrose 1 gm (/ Premix) 50 mls @ 100 mls/hr IV ONETIME ONE Stop: 07/01/20 07:59 Lactated Ringer's (Ringers, Lactated) Confirm Administered Dose 1,000 mls @ as directed .ROUTE .STK-MED ONE Stop: 07/01/20 07:59 Dextrose/Lactated Ringer's (Dextrose 5%-Lactated Ringers) 1,000 mls @ 125 mls/hr IV ASDIRECTED [facility] Stop: 07/01/20 18:26 Last Admin: 07/01/20 13:51 Dose: 125 mls/hr Documented by: Metoclopramide HCl (Reglan) 10 mg IVPUSH ONETIME ONE Stop: 07/01/20 07:01 Last Admin: 07/01/20 07:29 Dose: 10 mg Documented by: Morphine Sulfate (Duramorph Pf) Confirm Administered Dose 10 mg .ROUTE .STK-MED ONE Stop: 07/01/20 06:57 Ondansetron HCl (Zofran) 4 mg IVPUSH ONETIME PRN PRN Reason: Nausea/Vomiting Oxytocin (Pitocin) Confirm Administered Dose 20 unit .ROUTE .STK-MED ONE Stop: 07/01/20 06:57 Sodium Chloride (Saline Flush) 10 ml FLUSH ASDIRECTED PRN PRN Reason: Keep Vein Open
== END 2020-07-03 12:45 | disposition home or self-care (01) | DRG 540 ==
LOC: JD.OB 05:17
PROVIDERS: ADMIT Obstetrics & Gynecology; ATTEND Obstetrics & Gynecology
PROC: 10D00Z1 Extraction of Products of Conception, Low, Open Approach (ICD-10-PCS; principal; 2020-07-01)
DX: O36.63X0 Maternal care for excessive fetal growth, third trimester, not applicable or unspecified (principal); Z3A.39 39 weeks gestation of pregnancy; Z37.0 Single live birth; O99.214 Obesity complicating childbirth; E66.9 Obesity, unspecified; O24.429 Gestational diabetes mellitus in childbirth, unspecified control
CPT/HCPCS: 01961; 36415; 59025; 85025; 86592; 86850; 86900; 86901; 94762; A9270-GY; J0690; J2270; J2405; J2590; J2765; J3010; J3490; J7120; J7121

== ENCOUNTER 2022-03-30 09:33 | Emergency (ER) | payer MEDICAID ==
[2022-03-30] MEDS ORDERED: diphenhydrAMINE 25 MG Cap PO ONE (12:03)
[2022-03-30] MEDS ORDERED: Vitamin B6-pyridOXINE 50 MG Tab PO STA (12:03)
[2022-03-30] MEDS ORDERED: Cephalexin 500 MG Cap PO ONE (14:40)
== END 2022-03-30 14:52 | disposition other institution (70) ==
LOC: JD.ED 09:33
DX: O23.41 Unspecified infection of urinary tract in pregnancy, first trimester (principal); Z3A.01 Less than 8 weeks gestation of pregnancy; E66.9 Obesity, unspecified; Z68.39 Body mass index [BMI] 39.0-39.9, adult; Z91.011 Allergy to milk products; Z91.048 Other nonmedicinal substance allergy status; Z79.899 Other long term (current) drug therapy
CPT/HCPCS: 36415; 76705; 76817; 80053; 81001; 83690; 84702; 85025; 99284; A9270

== ENCOUNTER 2022-11-11 05:14 | Inpatient (IN) | payer MEDICAID ==
[~2022-11-11 05:14] MED LIST: ceFAZolin 1 GM in Sodium Chloride 0.9% 50 ML IV PRN; ceFAZolin 2 GM in Sodium Chloride 0.9% 50 ML IV PRN
[2022-11-11] MEDS: Lactated Ringers 1,000 ML IV SCH ×2 (05:40→06:21)
[2022-11-11 06:23] LABS: BASOPHILS ABSOLUTE AUTO 0.01 K/mm3 (0.01-0.08); BASOPHILS PERCENT AUTO 0.1 % (0.1-1.2); EOSINOPHILS ABSOLUTE AUTO 0.03 K/mm3 (0.04-0.36); EOSINOPHILS PERCENT AUTO 0.3 (0.7-5.8); HEMATOCRIT 37.9 % (34.1-44.9); IMMATURE GRAN ABSOLUTE AUTO 0.02 K/mm3 (0.00-0.10); IMMATURE GRAN PERCENT AUTO 0.2 % (<=1.0); LYMPHOCYTES ABSOLUTE AUTO 1.88 K/mm3 (1.18-3.74); LYMPHOCYTES PERCENT AUTO 20.7 % (19.3-51.7); MEAN CORPUSCULAR HGB CONC 33.5 g/dl (32.2-35.5); MEAN CORPUSCULAR VOLUME 89.6 fl (79.4-94.8); MEAN PLATELET VOLUME 11.8 fl (9.4-12.3); MONOCYTES ABSOLUTE AUTO 0.91 K/mm3 (0.24-0.36); NEUTROPHILS ABSOLUTE AUTO 6.22 K/mm3 (1.56-6.13); NEUTROPHILS PERCENT AUTO 68.7 % (34.0-71.1); PLATELET COUNT,PLT 215 K/mm3 (182-369); RED BLOOD CELL COUNT 4.23 M/mm3 (3.98-5.22); WHITE BLOOD CELL COUNT,WBC 9.07 K/mm3 (3.98-10.04)
[2022-11-11 06:25] LABS: HEMOGLOBIN 12.7 gm/dl (11.2-15.7)
[2022-11-11] MEDS ORDERED: fentaNYL 100 MCG/2 ML SDV ONE (06:58)
[2022-11-11] MEDS ORDERED: Morphine PF 1 MG/ML Amp ONE (06:58)
[2022-11-11] MEDS ORDERED: Citric Acid/Sodium Citrate Solution 30 ML Cup PO ONE (07:00)
[2022-11-11] MEDS ORDERED: Metoclopramide 10 MG/2 ML SDV IVPUSH ONE (07:00)
[2022-11-11] MEDS ORDERED: ceFAZolin 2 GM Vial ONE (07:30)
[2022-11-11] MEDS ORDERED: Dexmedetomidine 200 MCG/2 ML SDV ONE (07:54)
[2022-11-11] MEDS ORDERED: Lactated Ringers 1,000 ML ONE ×2 (07:59→08:22)
[2022-11-11] MEDS ORDERED: Oxytocin/Lactated Ringers 10 UNIT/1,000 ML BAG IV SCH (08:00)
[2022-11-11] MEDS ORDERED: Ondansetron 4 MG/2 ML SDV ONE (08:08)
[2022-11-11] MEDS ORDERED: Oxytocin 10 Units/1 ML SDV ONE ×2 (08:14→08:24)
[2022-11-11] MEDS ORDERED: Phenylephrine 1% 10 MG/ML SDV ONE (08:22)
[2022-11-11] MEDS ORDERED: Ketorolac 30 MG/ML SDV ONE (08:34)
[2022-11-11] MEDS ORDERED: diphenhydrAMINE 50 MG/ML SDV IVPUSH PRN ×2 (08:44→10:39)
[2022-11-11] MEDS ORDERED: fentaNYL 100 MCG/2 ML SDV IVPUSH PRN (08:44)
[2022-11-11] MEDS ORDERED: Ondansetron 4 MG/2 ML SDV IVPUSH PRN (08:44)
[2022-11-11] MEDS ORDERED: Dextrose 5%-Lactated Ringers 1,000 ML IV SCH (10:39)
[2022-11-11] MEDS ORDERED: Naloxone 0.4 MG/ML SDV IVPUSH PRN (10:39)
[2022-11-11] MEDS ORDERED: Ondansetron 4 MG/2 ML SDV IV PRN (10:39)
[2022-11-11] MEDS ORDERED: Docusate Sodium 100 MG Cap PO PRN (10:39)
[2022-11-11] MEDS: Ketorolac 30 MG/ML SDV IVPUSH SCH ×2 (14:17→21:34)
[2022-11-11] MEDS: Acetaminophen/oxyCODONE 325-5 MG Tab PO PRN (20:03)
[2022-11-12] MEDS: Ketorolac 30 MG/ML SDV IVPUSH SCH (03:46)
[2022-11-12] MEDS: Acetaminophen/oxyCODONE 325-5 MG Tab PO PRN ×4 (04:48→23:07)
[2022-11-12 06:05] LABS: HEMATOCRIT 35.3 % (34.1-44.9); HEMOGLOBIN 11.4 gm/dl (11.2-15.7); MEAN CORPUSCULAR HEMOGLOBIN 29.6 pg (25.6-32.2); MEAN CORPUSCULAR HGB CONC 32.3 g/dl (32.2-35.5); MEAN CORPUSCULAR VOLUME 91.7 fl (79.4-94.8); MEAN PLATELET VOLUME 11.5 fl (9.4-12.3); PLATELET COUNT,PLT 193 K/mm3 (182-369); RED BLOOD CELL COUNT 3.85 M/mm3 (3.98-5.22); WHITE BLOOD CELL COUNT,WBC 9.99 K/mm3 (3.98-10.04)
[2022-11-12] MEDS: Ibuprofen 600 MG Tab PO PRN ×2 (15:45→23:06)
[2022-11-12] MEDS: Citalopram 20 MG Tab PO SCH (15:58)
[2022-11-13] MEDS: Ibuprofen 600 MG Tab PO PRN (06:40)
[2022-11-13] MEDS: Acetaminophen/oxyCODONE 325-5 MG Tab PO PRN (09:50)
[2022-11-13] MEDS: Citalopram 20 MG Tab PO SCH (09:52)
== END 2022-11-13 13:13 | disposition home or self-care (01) | DRG 788 ==
LOC: JD.OB 05:14
PROVIDERS: ADMIT Obstetrics & Gynecology; ATTEND Obstetrics & Gynecology
PROC: 10D00Z1 Extraction of Products of Conception, Low, Open Approach (ICD-10-PCS; principal; 2022-11-11)
DX: O34.211 Maternal care for low transverse scar from previous cesarean delivery (principal); O99.344 Other mental disorders complicating childbirth; F41.9 Anxiety disorder, unspecified; F32.A Depression, unspecified; O99.214 Obesity complicating childbirth; O99.52 Diseases of the respiratory system complicating childbirth; J45.909 Unspecified asthma, uncomplicated; D64.9 Anemia, unspecified; O99.02 Anemia complicating childbirth; Z37.0 Single live birth; Z98.890 Other specified postprocedural states; Z3A.39 39 weeks gestation of pregnancy; Z79.899 Other long term (current) drug therapy; Z91.011 Allergy to milk products; Z88.8 Allergy status to other drugs, medicaments and biological substances; Z86.16 Personal history of COVID-19; Z91.040 Latex allergy status; Z87.891 Personal history of nicotine dependence
CPT/HCPCS: 36415; 59025; 85025; 85027; 86592; 86850; 86900; 86901; A9270-GY; J0690; J1200; J1885; J2274; J2370; J2405; J2590; J2765; J3010; J3490; J7120; J7121

== ENCOUNTER 2023-10-22 20:20 | Emergency (ER) | payer MEDICAID | END 2023-10-22 21:48 | disposition home or self-care (01) | LOC: JD.ED 20:20 | DX: S06.9X0A Unspecified intracranial injury without loss of consciousness, initial encounter (principal); J45.909 Unspecified asthma, uncomplicated; K21.9 Gastro-esophageal reflux disease without esophagitis; Z91.011 Allergy to milk products; Z91.018 Allergy to other foods; Z79.51 Long term (current) use of inhaled steroids; Z79.899 Other long term (current) drug therapy; Z86.16 Personal history of COVID-19; W55.22XA Struck by cow, initial encounter | CPT/HCPCS: 99283; 99284 ==

== ENCOUNTER 2024-03-18 17:55 | Emergency (ER) | payer BC, MEDICAID ==
[2024-03-18 19:17] LABS: BASOPHILS ABSOLUTE AUTO 0.1 K/mm3 (0.0-0.2); BASOPHILS PERCENT AUTO 0.5 % (0.0-1.0); EOSINOPHILS ABSOLUTE AUTO 0.1 K/mm3 (0.0-0.4); EOSINOPHILS PERCENT AUTO 0.9 % (0.0-6.0); HEMATOCRIT 44.5 % (37.0-47.0); HEMOGLOBIN 14.9 gm/dl (12.0-16.0); IMMATURE GRAN ABSOLUTE AUTO 0.03 K/mm3 (0.00-0.05); IMMATURE GRAN PERCENT AUTO 0.3 % (0.0-0.4); LYMPHOCYTES PERCENT AUTO 17.6 % (24.0-44.0); MEAN CORPUSCULAR HEMOGLOBIN 29.3 pg (28.0-32.0); MEAN CORPUSCULAR HGB CONC 33.5 g/dl (32.0-36.0); MEAN CORPUSCULAR VOLUME 87.6 fl (83.0-99.0); MEAN PLATELET VOLUME 10.5 fl (9.4-12.3); MONOCYTES ABSOLUTE AUTO 0.8 K/mm3 (0.0-0.8); MONOCYTES PERCENT AUTO 7.6 % (0.0-8.0); NEUTROPHILS ABSOLUTE AUTO 8.1 K/mm3 (1.8-7.7); NEUTROPHILS PERCENT AUTO 73.1 % (41.0-71.0); PLATELET COUNT,PLT 336 K/mm3 (150-400); RED BLOOD CELL COUNT 5.08 M/mm3 (4.10-5.30); WHITE BLOOD CELL COUNT,WBC 11.06 K/mm3 (3.9-11.3)
[2024-03-18 19:41] LABS: ANION GAP 12.8 (5-15); BLOOD UREA NITROGEN,BUN 8 mg/dL (7-18); CALCIUM 9.2 mg/dL (8.5-10.1); CARBON DIOXIDE,CO2 25 mEq/L (21-32); CHLORIDE,CL 105 mEq/L (98-107); CREATININE 0.5 mg/dL (0.55-1.02); EST CRCL DRUG DOSING (CG) 149.82 mL/min; ESTIMATED GFR 134 mL/min (>60); GLUCOSE RANDOM 100 mg/dL (70-99); POTASSIUM,K 3.8 mEq/L (3.5-5.1); SODIUM,NA 139 mEq/L (136-145)
[2024-03-18 19:52] LABS: TROPONIN I HIGH SENSITIVITY < 4 pg/mL (<=51)
== END 2024-03-18 20:22 ==
LOC: JD.ED 17:55
DX: R07.89 Other chest pain (principal); F41.9 Anxiety disorder, unspecified; J45.909 Unspecified asthma, uncomplicated; E66.9 Obesity, unspecified; Z68.39 Body mass index [BMI] 39.0-39.9, adult; Z86.16 Personal history of COVID-19; Z87.891 Personal history of nicotine dependence; Z79.899 Other long term (current) drug therapy; Z91.011 Allergy to milk products; Z91.048 Other nonmedicinal substance allergy status
CPT/HCPCS: 36415; 71046; 71046-26; 80048; 84484; 85025; 93005; 99285

== ENCOUNTER 2025-03-19 19:16 | Emergency (ER) | payer SELFPAY ==
[2025-03-19] MEDS ORDERED: Sodium Chloride 0.9% 10 ML Syringe FLUSH PRN (19:47)
[2025-03-19 20:19] LABS: BASOPHILS ABSOLUTE AUTO 0.1 K/mm3 (0.0-0.2); BASOPHILS PERCENT AUTO 0.4 % (0.0-1.0); EOSINOPHILS ABSOLUTE AUTO 0.1 K/mm3 (0.0-0.4); EOSINOPHILS PERCENT AUTO 0.9 % (0.0-6.0); IMMATURE GRAN ABSOLUTE AUTO 0.04 K/mm3 (0.00-0.05); IMMATURE GRAN PERCENT AUTO 0.3 % (0.0-0.4); LYMPHOCYTES ABSOLUTE AUTO 3.0 K/mm3 (1.0-4.8); LYMPHOCYTES PERCENT AUTO 24.8 % (24.0-44.0); MEAN PLATELET VOLUME 10.4 fl (9.4-12.3); MONOCYTES ABSOLUTE AUTO 1.1 K/mm3 (0.0-0.8); MONOCYTES PERCENT AUTO 9.0 % (0.0-8.0); NEUTROPHILS ABSOLUTE AUTO 7.9 K/mm3 (1.8-7.7); NEUTROPHILS PERCENT AUTO 64.6 % (41.0-71.0); NRBC ABSOLUTE 0.00 (0.00-0.02); NRBC PERCENT 0.0 % (0.0-0.2); PLATELET COUNT,PLT 342 K/mm3 (150-400); RED BLOOD CELL COUNT 5.24 M/mm3 (4.10-5.30); WHITE BLOOD CELL COUNT,WBC 12.17 K/mm3 (3.9-11.3)
[2025-03-19 20:21] LABS: APPEARANCE,URINE CLEAR (Clear); GLUCOSE,URINE NEGATIVE (Negative); OCCULT BLOOD,URINE NEGATIVE (Negative)
[2025-03-19 20:46] LABS: A/G RATIO 1.1 (1-2); ALANINE AMINOTRANSFERASE,ALT 25.0 U/L (14-59); ASPARTATE AMNIOTRANSFERASE,AST 12.0 U/L (15-37); BILIRUBIN TOTAL 0.5 mg/dL (0.2-1.0); BLOOD UREA NITROGEN,BUN 15.0 mg/dL (7-18); CARBON DIOXIDE,CO2 27.0 mEq/L (21-32); CHLORIDE,CL 102.0 mEq/L (98-107); CREATININE 0.6 mg/dL (0.55-1.02); EST CRCL DRUG DOSING (CG) 123.77 mL/min; ESTIMATED GFR 128.0 mL/min (>60); GLUCOSE RANDOM 97.0 mg/dL (70-99); POTASSIUM,K 3.5 mEq/L (3.5-5.1); PROTEIN TOTAL,TP 8.4 g/dl (6.4-8.2); SODIUM,NA 140.0 mEq/L (136-145)
[2025-03-19] MEDS: Iopamidol 612 MG/ML 100 ML Bottle IVPUSH ONE (21:20)
[2025-03-19] MEDS: Magnesium Citrate Solution 296 ML Bottle PO ONE (21:59)
== END 2025-03-19 22:08 | disposition home or self-care (01) ==
LOC: JD.ED 19:16
DX: K59.01 Slow transit constipation (principal); J45.909 Unspecified asthma, uncomplicated; Z86.16 Personal history of COVID-19; E66.9 Obesity, unspecified; Z68.38 Body mass index [BMI] 38.0-38.9, adult; Z88.0 Allergy status to penicillin; Z88.8 Allergy status to other drugs, medicaments and biological substances; Z91.048 Other nonmedicinal substance allergy status; Z79.899 Other long term (current) drug therapy
CPT/HCPCS: 36415; 74177; 74177-26; 80053; 81003; 83690; 84703; 85025; 86140; 99283; 99284; A9270-GY; Q9967